=== PATIENT | male | born 1960 | race Caucasian/White ===

== ENCOUNTER 2018-06-04 12:34 | Emergency (ER) | payer OTHER ==
[2018-06-04 12:40] VITALS: BP 122/70
[2018-06-04] MEDS ORDERED: FLUORESCEIN SODIUM 1 MG STRIP OP ONE (13:06)
[2018-06-04] MEDS ORDERED: PROPARACAINE 0.5% 15 ML OPHT DROP ONE (13:06)
--- NOTE | 2018-06-04 13:09 | EDPHY ---
H & P Stated Complaint: poss FB in R eye after wind shell yesterday Time Seen by Provider: 06/04/18 13:08 - Personal History Current Tetanus/Diphtheria Vaccine: Unsure Current Tetanus Diphtheria and Acellular Pertussis (TDAP): Unsure - Medical/Surgical History Hx Asthma: No Hx Chronic Respiratory Disease: No Hx Diabetes: No Hx Cardiac Disease: No Hx Renal Disease: No Hx Cirrhosis: No Hx Alcoholism: No Hx HIV/AIDS: No Hx Splenectomy or Spleen Trauma: No Other PMH: denies - Social History Smoking Status: Current every day smoker Constitutional: Initial Vital Signs Temperature (C) 36.7 C 06/04/18 12:37 Heart Rate 81 06/04/18 12:37 Respiratory Rate 18 06/04/18 12:37 Blood Pressure 122/70 H 06/04/18 12:37 O2 Sat (%) 97 06/04/18 12:37 O2 Delivery Mode Room Air Allergies/Adverse Reactions: No Known Allergies Allergy (Unverified 06/04/18 12:36) Home Medications: Medication Instructions Recorded Ofloxacin 0.3% [Ocuflox 0.3%] 2 drops OP QID #1 opht.btl 06/04/18 Medical Decision Making ED Course/Re-evaluation: CHIEF COMPLAINT: Right eye pain HISTORY OF PRESENT ILLNESS: The patient is a 57 y/o male complaining of right eye pain after he things a foreign object entered his eye yesterday. Since the foreign object got in his eye, he has had intermittent pain and pressure. He tried washing out the eye without relief of his symptoms. Since his symptoms have not improved he decided to present to the emergency department. Currently he is unsure if there is something under his eyelid. He does wear reading glasses as needed. No fever, headache, body aches, lightheadedness, chest pain, heart palpitations, shortness of breath, cough, abdominal pain, urinary or bowel complaints, numbness, paresthesias. REVIEW OF SYSTEMS: A comprehensive 10 system review of systems is otherwise negative aside from elements mentioned in the history of present illness and medical decision making. PHYSICAL EXAM: HR, BP, O2 Sat, RR. Temp noted General Appearance: Alert, well hydrated, appropriate, and non-toxic appearing. Visual Acuity: Noted from Nurse's notes. Pupils: PERRLA, EOMI, no nystagmus, no trauma, no injection. Lids: No edema or swelling Skin: No proptosis, no periorbital erythema or swelling, no vesicles Conjunctivae: Not injected, not icteric, no discharge Cornea: Exam with slit lamp and fluorescein shows right eye rust ring and foreign object at 2:00 under the eyelid Anterior chamber: Normal, no hyphema or hypopyon Posterior Chamber: No papilledema or hemorrhages. Past medical history: Denies Past surgical history: Denies Family history: Denies Social history: Single, employed, does not abuse drugs or alcohol DIAGNOSTICS/PROCEDURES/CRITICAL CARE TIME: Fluorescein exam, see above. DIFFERENTIAL DIAGNOSIS: The differential diagnosis for the patient's eye injury included but was not limited to cornea abrasion, foreign object, hyphema, retinal detachment. MEDICAL DECISION MAKING: The patient is a 57 y/o male complaining of right eye pain after he things a foreign object entered his eye after a shell of wind, yesterday. Since the foreign object got in his eye, he has had intermittent pain and pressure. I will perform a fluorescein eye exam. 1318: Upon exam there is a rust ring at 2:00 under the eyelid. The patient cannot recall if he has been doing metal work since the pain started. I have removed the foreign object from his right eye. I have advised him to follow up with an edge gluer without fail. I have also prescribed him Ocuflox. Return precautions provided; patient is comfortable with this plan. Departure - Departure Disposition: Home, Routine, Self-Care Clinical Impression: Foreign body in eye Qualifiers: Encounter type: initial encounter Laterality: right Qualified Code(s): T15.91XA - Foreign body on external eye, part unspecified, right eye, initial encounter Condition: Good Instructions: Eye Foreign Body (ED) Additional Instructions: 1. Apply Ocuflox as prescribed. 2. Follow up with the edge gluer within the next 2 days without fail. 3. Return to the Emergency Department for severe headache, vomiting, vision changes, confusion, fever or other concerns. Referrals: Radha Delcid MD [Medical Doctor] - As per Instructions Prescriptions: Ofloxacin 0.3% [Ocuflox 0.3%] 2 drops OP QID #1 opht.btl Report Scribed for: Carlo Rendon Report Scribed by: Yenny Poe Date of Report: 06/04/18 Time of Report: 13:21
== END 2018-06-04 13:33 | disposition home or self-care (01) ==
PROC: 08C0XZZ Extirpation of Matter from Right Eye, External Approach (ICD-10-PCS; principal; 2018-06-04)
DX: T15.91XA Foreign body on external eye, part unspecified, right eye, initial encounter (principal); X58.XXXA Exposure to other specified factors, initial encounter; Y99.9 Unspecified external cause status